=== PATIENT | male | born 1995 ===

== ENCOUNTER 2018-04-13 15:45 | Emergency (ER) | payer SELFPAY ==
[2018-04-13 16:19] VITALS: BP 106/60; PULSE 88; RESP 20; TEMP 98; O2SAT 100
[2018-04-13] MEDS ORDERED: Naproxen 500 MG TAB PO ONE ×2 (16:34→16:51)
--- NOTE | 2018-04-13 17:54 | ED PDOC ---
Lower Extremity Pain/Injury Time Seen by Provider: 04/13/18 16:24 Chief Complaint (Nursing): Lower Extremity Problem/Injury Chief Complaint (Provider): Lower Extremity Problem/Injury History Per: Patient History/Exam Limitations: no limitations Onset/Duration Of Symptoms: Days (x2) Current Symptoms Are (Timing): Still Present Additional Complaint(s): 22 y/o male presents to the ED for right knee pain, onset two days ago. Patient states on Friday he tripped, fell and injured his right knee. Patient is now complaining of swelling and pain. Denies numbness and tingling. PMD: None Provided - Knee Description Of Injury: Fell Past Medical History Reviewed: Historical Data, Nursing Documentation, Vital Signs Vital Signs: Last Vital Signs Temp 98.0 F 04/13/18 16:17 Pulse 88 04/13/18 16:17 Resp 20 04/13/18 16:17 BP 106/60 04/13/18 16:17 Pulse Ox 100 04/13/18 16:17 - Medical History PMH: No Chronic Diseases - Surgical History Surgical History: No Surg Hx - Family History Family History: States: Unknown Family Hx - Allergies Allergies/Adverse Reactions: Allergies Allergy/AdvReac Type Severity Reaction Status Date / Time No Known Allergies Allergy Verified 04/13/18 16:17 Review of Systems ROS Statement: Except As Marked, All Systems Reviewed And Found Negative Musculoskeletal: Positive for: Leg Pain (right knee pain and swelling) Neurological: Negative for: Numbness Physical Exam - Reviewed Nursing Documentation Reviewed: Yes Vital Signs Reviewed: Yes - Physical Exam Appears: Positive for: Well, Non-toxic, No Acute Distress Skin: Positive for: Normal Color, Warm. Negative for: Rash Extremity: Positive for: Tenderness (of right knee), Swelling (moderate swelling of the right knee), Other (Dorsalis pedis pulses 2+; no break in skin integrity, no warmth, no erythema). Negative for: Normal ROM (limited ROM secondary to pain), Deformity - ECG O2 Sat by Pulse Oximetry: 100 (RA) Pulse Ox Interpretation: Normal - Progress ED Course And Treament: Knee immobilized in immobilizer by denture laboratory technician and crutches provided. Medical Decision Making Medical Decision Making: Time: 1633 Plan: -- Right Knee XR 3 Views -- Naproxen 500 mg PO Scribe Attestation: Documented by Janene Lizama, acting as a scribe for Nhan Vazquez PA-C. Provider Scribe Attestation: All medical record entries made by the Scribe were at my direction and personally dictated by me. I have reviewed the chart and agree that the record accurately reflects my personal performance of the history, physical exam, medical decision making, and the department course for this patient. I have also personally directed, reviewed, and agree with the discharge instructions and disposition. Disposition - Clinical Impression Clinical Impression: Knee sprain - Patient ED Disposition Is Patient to be Admitted: No - Disposition Referrals: Preeti Cotton [Outside] Edis Clayton III, MD [Staff Provider] - Disposition: Routine/Home Disposition Time: 19:01 Condition: STABLE Additional Instructions: Follow up with orthopedist for further evaluation. Return to ED immediately if symptoms worsen. Instructions: Knee Sprain (DC) Forms: [employer] (U[place]an), [facility] ED School/Work Excuse Print Language: VIET[place]ESE
--- NOTE | 2018-04-13 18:50 | RAD ---
PROCEDURE: Right Knee Radiographs. HISTORY: trauma COMPARISON: None. FINDINGS: BONES: No acute fracture. JOINTS: Unremarkable. JOINT EFFUSION: None. OTHER FINDINGS: None. IMPRESSION: No demonstrated fracture or dislocation.
== END 2018-04-13 19:11 | disposition home or self-care (01) ==
LOC: H.ER 15:45
DX: S83.91XA Sprain of unspecified site of right knee, initial encounter (principal); W19.XXXA Unspecified fall, initial encounter